=== PATIENT | male | born 1995 | race Caucasian/White ===

== ENCOUNTER 2019-04-18 00:19 | Observation (INO) ==
[2019-04-18] MEDS ORDERED: IBUPROFEN 600 MG TABLET PO ONE (01:01)
[2019-04-18] MEDS: NORMAL SALINE 1,000 ML IV SCH ×3 (01:09→09:00)
[2019-04-18 01:17] LABS: Hematocrit 47.1 % (42.0-52.0); Hemoglobin 15.8 gm/dL (13.5-18.0); Mean Cell Volume 89.4 fl (78-100); Mean Corpuscular Hgb Conc 33.5 g/dl (32-36); Mean Platelet Volume 12.1 fl (8-11.3); Neutrophil # 11.2 K/mm3 (1.3-6.0); Neutrophil % 77.2 % (42-75.0); Red Blood Count 5.27 M/mm3 (4.7-6.0); Red Cell Distribution Width 12.8 % (11.5-14.0); White Blood Count 14.5 K/mm3 (4.0-10.5)
[2019-04-18 01:18] LABS: Platelet Count 272 K/mm3 (150-450)
--- NOTE | 2019-04-18 01:26 | ERNOTE ---
Date of Service: 04/18/19 Time Seen by Provider: 04/18/19 00:30 Stated Complaint: COUGHING Presenting Symptoms:: cough, fever Source: patient Exam Limitations: no limitations Immunizations: IMMUNIZATION HX Immunizations Up to Date Yes History of Influenza Vaccine No Allergies/Adverse Reactions: Allergies No Known Drug Allergies Allergy (Verified 04/18/19 00:25) Home Medications: HOME MEDICATIONS NK 05/05/18 [Last Taken Unknown] - History of Present Ilness Narrative: 23-year-old male presents with cough for body aches and fever. Patient reports symptoms have been going on for the past 2 days. He is concerned regarding possible pneumonia. He previously had pneumonia last year and had similar symptoms. He has a past medical history of muscular dystrophy and severe scoliosis with pectus excavatum. Date (Duration): 04/18/19 Timing: constant Severity: moderate Modifying Factors - Improves: Reports: rest Modifying Factors - Worsens: Reports: activity Associated Symptoms: Reports: cough, shortness of breath Review of Systems - Review of Systems Constitutional: Present: See HPI, chills, fatigue, malaise EYE: Present: no symptoms reported ENT: Present: nose congestion Respiratory: Present: cough Cardiology: Present: no symptoms reported Gastrointestinal/Abdominal: Present: no symptoms reported Genitourinary: Present: no symptoms reported Skin: Present: no symptoms reported All Other Systems: All systems neg except as marked Medical History (Last Reviewed 04/18/19 @ 01:20 by Trevor Brown MD) ADHD Onset Date: Unknown Closed nondisplaced fracture of medial condyle of left femur Onset Date: 09/02/17 w/ intracondylar extension Muscular dystrophy Onset Date: Unknown Scoliosis Onset Date: Unknown Undescended testes Onset Date: Unknown Surgical History: Surgical History (Last Reviewed 04/18/19 @ 06:39 by Trevor Brown MD) History of testicular surgery Onset Date: Unknown Family History: Family History (Last Reviewed 04/18/19 @ 01:20 by Trevor Brown MD) Mother Alive and well Father Alive and well Sister Muscular dystrophy x1 Brother Muscular dystrophy x1 Social History: (Last Reviewed 04/18/19 @ 01:20 by Trevor Brown MD) Social History: Marital status: Single household members: family current occupational status: unemployed current occupation: disability Highest education level completed: 11th grade Service: No Tobacco: Smoking Status: Never smoker Alcohol: alcohol intake: never Substance Use: substance use type: does not use Dietary Habits: caffeine: Yes Type: carbonated beverages Physical Exam - Physical Exam General Appearance: Present: cachetic Head Exam: Present: normal inspection Eye Exam: Normal inspection: bilateral Ears, Nose, Throat: Present: nasal congestion Neck: Present: nontender Respiratory: Present: no respiratory distress, rhonchi - Left lower lobe Cardiovascular/Chest: Present: no murmur, tachycardia, other - pectus excavatum Gastrointestinal/Abdominal: Present: normal bowel sounds Back Exam: Present: other - Severe scoliosis Neurological Exam: Present: alert, oriented Skin Exam: Present: normal color Progress - Results and Orders Patient's Lab Results:: I have reviewed the patient's lab results. - Vital Signs Patient's Vital Signs:: I have reviewed the patient's vital signs. Vital Signs: Vital Signs 04/18/19 00:22 04/18/19 01:10 Temperature 38.9 C H Pulse Rate 137 H 111 H Respiratory Rate 20 14 Blood Pressure 132/86 121/86 O2 Sat by Pulse Oximetry 98 99 - Progress/Reassessment Chief Complaint: Cough Progress:: Unchanged - Transfer of Care Expected Disposition: Admit Plan - Plan Plan: 22-year-old male with a past medical history of muscular dystrophy, scoliosis, and moderate to severe pectus excavatum presents with cough and shortness of breath is slowly been increasing over the past 2 days. He appears Kach x-ray was tachycardic, and was febrile. He was noted to have rhonchi left lower lobe and imaging suggestive of early left lower lobe pneumonia. He was given ceftriaxone and azithromycin as well as IV fluids and Tylenol. He was placed on observation floor for further care. Departure Clinical Impression: Pneumonia Qualifiers: Pneumonia type: due to unspecified organism Laterality: left Lung location: lower lobe of lung Qualified Code(s): J18.9 - Pneumonia, unspecified organism - Departure Disposition: Still a patient Condition: Fair
[2019-04-18 01:31] LABS: Albumin * 3.5 gm/dl (3.4-5.0); Anion Gap 12.5 mmol/L (6.8-13.8); BUN/Creatinine Ratio 13.5 (9.0-21.6); Bilirubin, Total 0.8 mg/dL (0.0-1.1); Ca. Corrected For Albumin 8.3 mg/dL (8.4-10.2); Calcium * 8.2 mg/dL (7.9-10.9); Carbon Dioxide 27.6 mmol/L (24-32.6); Potassium 3.1 mmol/L (3.4-4.6); Total Protein 7.1 gm/dL (6.2-8.2)
[2019-04-18] MEDS ORDERED: cefTRIAXone SODIUM 1,000 MG/100 ML BAG IV ONE ×2 (01:52→01:55)
[2019-04-18] MEDS ORDERED: AZITHROMYCIN 250 MG TABLET PO ONE ×2 (01:53→01:55)
[2019-04-18] MEDS ORDERED: NORMAL SALINE 1,000 ML IV ONE (03:15)
--- NOTE | 2019-04-18 08:23 | HP ---
Chief Complaint - Chief Complaint Date of Service: 04/18/19 Time of Service: 08:25 Chief Complaint: chest tightness History of Present Illness: Patient with a PMHx of muscular dystrophy presented to the ED for 3 days of chest tightness, cough, and fever to 101.1. He was hospitalized at [facility] last year for pneumonia. He has significant pectus excavatum. This morning, he feels the same as yesterday. Denies SOB or other complaints. Medical History (Last Updated 04/18/19 @ 03:29 by Yvette Fernández RN) Fracture tibia/fibula on left four years ago ADHD Onset Date: Unknown Closed nondisplaced fracture of medial condyle of left femur Onset Date: 09/02/17 w/ intracondylar extension Muscular dystrophy Onset Date: Unknown Scoliosis Onset Date: Unknown Undescended testes Onset Date: Unknown Surgical History: Surgical History (Last Reviewed 04/18/19 @ 06:39 by Trevor Brown MD) History of testicular surgery Onset Date: Unknown Family History: Family History (Last Reviewed 04/18/19 @ 03:29 by Yvette Fernández RN) Mother Alive and well Father Alive and well Sister Muscular dystrophy x1 Brother Muscular dystrophy x1 Social History: (Last Reviewed 04/18/19 @ 03:29 by Yvette Fernández RN) Social History: Marital status: Single household members: family current occupational status: unemployed current occupation: disability Highest education level completed: 11th grade Service: No Tobacco: Smoking Status: Never smoker Alcohol: alcohol intake: never Substance Use: substance use type: does not use Dietary Habits: caffeine: Yes Type: carbonated beverages Review Of Systems (GEN) - Review of Systems Generalized/Overall Review: Present: Fever Respiratory: Present: Cough. Absent: Shortness of Breath, Wheezing Cardiac: Present: Chest Pain. Absent: Edema Abdominal: Absent: Nausea Genitourinary: Present: No Symptoms Reported Musculoskeletal: Present: No Symptoms Reported Neurological: Present: No Symptoms Reported Immunizations: IMMUNIZATION HX Immunizations Up to Date Yes History of Influenza Vaccine No Allergies/Adverse Reactions: Allergies Allergy/AdvReac Type Severity Reaction Status Date / Time No Known Drug Allergies Allergy Verified 04/18/19 00:25 Home Medications: HOME MEDICATIONS NK 05/05/18 [Last Taken Unknown] Exam - Exam Vital Signs: Vital Signs - Last Taken Temp 36.4 C 04/18/19 06:46 Pulse 77 04/18/19 06:46 Resp 20 04/18/19 06:46 BP 107/83 04/18/19 06:46 Pulse Ox 99 04/18/19 06:46 Constitutional: Present: Alert - thin, Cooperative Respiratory: Present: lungs clear, normal breath sounds, no respiratory distress, other - significant pectus excavatum Cardiovascular/Chest: Present: regular rate, rhythm Abdomen: Present: soft, nontender Appearance: Present: appropriate appearance Eye contact: Present: cooperative Diagnostic Studies: Abnormal Lab Results 04/18/19 04/18/19 Range/Units 01:11 01:11 WBC 14.5 H (4.0-10.5) K/mm3 MPV 12.1 H (8-11.3) fl Immature Gran # (Auto) 0.06 H (0.000-0.0310) K/mm3 Neutrophils % 77.2 H (42-75.0) % Lymphocytes % 12.7 L (20-51) % Monocytes % 9.3 H (0.0-9) % Neutrophils # 11.2 H (1.3-6.0) K/mm3 Monocytes # 1.4 H (0.0-1.0) k/mm3 Potassium 3.1 L (3.4-4.6) mmol/L Est GFR (Non-Af Amer) 213 H (60-130) mL/min Random Glucose 124 H (70-110) mg/dL Calcium Adj for Albumin 8.3 L (8.4-10.2) mg/dL Laboratory Results WBC 14.5 K/mm3 (4.0-10.5) H 04/18/19 01:11 RBC 5.27 M/mm3 (4.7-6.0) 04/18/19 01:11 Hgb 15.8 gm/dL (13.5-18.0) 04/18/19 01:11 Hct 47.1 % (42.0-52.0) 04/18/19 01:11 MCV 89.4 fl (78-100) 04/18/19 01:11 MCH 30.0 pg (27-31) 04/18/19 01:11 MCHC 33.5 g/dl (32-36) 04/18/19 01:11 RDW 12.8 % (11.5-14.0) 04/18/19 01:11 Plt Count 272 K/mm3 (150-450) 04/18/19 01:11 MPV 12.1 fl (8-11.3) H 04/18/19 01:11 Immature Gran % (Auto) 0.40 % (0.001-0.429) 04/18/19 01:11 Immature Gran # (Auto) 0.06 K/mm3 (0.000-0.0310) H 04/18/19 01:11 Neutrophils % 77.2 % (42-75.0) H 04/18/19 01:11 Lymphocytes % 12.7 % (20-51) L 04/18/19 01:11 Monocytes % 9.3 % (0.0-9) H 04/18/19 01:11 Eosinophils % 0.1 % (0.0-3.0) 04/18/19 01:11 Basophils % 0.3 % (0.0-1.0) 04/18/19 01:11 Nucleated RBC % 0.0 k/mm3 (0-1) 04/18/19 01:11 Neutrophils # 11.2 K/mm3 (1.3-6.0) H 04/18/19 01:11 Lymphocytes # 1.85 k/mm3 (1.5-3.5) 04/18/19 01:11 Monocytes # 1.4 k/mm3 (0.0-1.0) H 04/18/19 01:11 Eosinophils # 0.0 k/mm3 (0.0-0.7) 04/18/19 01:11 Absolute Basophils 0.0 k/mm3 (0.0-0.1) 04/18/19 01:11 Sodium 134 mmol/L (132-142) 04/18/19 01:11 Plasma Sodium 134 mmol/L (130-142) 04/18/19 01:11 Potassium 3.1 mmol/L (3.4-4.6) L 04/18/19 01:11 Chloride 97 mmol/L (97-106) 04/18/19 01:11 Carbon Dioxide 27.6 mmol/L (24-32.6) 04/18/19 01:11 Anion Gap 12.5 mmol/L (6.8-13.8) 04/18/19 01:11 BUN 7 mg/dL (6-23) 04/18/19 01:11 Creatinine 0.52 mg/dL (0.4-1.4) 04/18/19 01:11 Est GFR (Non-Af Amer) 213 mL/min (60-130) H 04/18/19 01:11 BUN/Creatinine Ratio 13.5 (9.0-21.6) 04/18/19 01:11 Random Glucose 124 mg/dL (70-110) H 04/18/19 01:11 Lactic Acid, Venous 1.6 mmol/L (0.4-2.0) 04/18/19 01:11 Calcium 8.2 mg/dL (7.9-10.9) 04/18/19 01:11 Calcium Adj for Albumin 8.3 mg/dL (8.4-10.2) L 04/18/19 01:11 Total Bilirubin 0.8 mg/dL (0.0-1.1) 04/18/19 01:11 AST 21 U/L (0-48) 04/18/19 01:11 ALT 21 U/L (19-67) 04/18/19 01:11 Alkaline Phosphatase 54 U/L (50-170) 04/18/19 01:11 Total Protein 7.1 gm/dL (6.2-8.2) 04/18/19 01:11 Albumin 3.5 gm/dl (3.4-5.0) 04/18/19 01:11 Influenza Type A Ag Negative (NEGATIVE) 04/18/19 00:51 Influenza Type B Ag Negative (NEGATIVE) 04/18/19 00:51 Group A Strep Rapid Negative (NEGATIVE) 04/18/19 00:51 Assessment/Plan - Assessment/Plan (1) Pneumonia Assessment: Due to his muscular dystrophy, he was admitted for observation. With his fever, cough, and chest tightness, he is being treated for community acquired pneumonia. Possible infiltrate seen on CXR. Negative influenza and strep. WBC slightly elevated at 14.5. Has not required oxygen. He is not yet improving, and continued to have fevers overnight. He was given rocephin and azithromycin in the ED. Will continue azithromycin and tylenol for fever. Anticipate DC in 24-48 hours. Problem: Acute Qualifiers: Pneumonia type: due to unspecified organism Laterality: left Lung location: lower lobe of lung Qualified Code(s): J18.9 - Pneumonia, unspecified organism (2) Muscular dystrophy Problem: Chronic
[2019-04-18] MEDS: AZITHROMYCIN 250 MG TABLET PO SCH (09:45)
[2019-04-18] MEDS: ACETAMINOPHEN 325 MG TABLET PO PRN (18:54)
[2019-04-19] MEDS: ACETAMINOPHEN 325 MG TABLET PO PRN (02:53)
[2019-04-19] MEDS ORDERED: CEFDINIR 300 MG CAPSULE PO SCH (09:00)
[2019-04-19] MEDS: AZITHROMYCIN 250 MG TABLET PO SCH (09:27)
--- NOTE | 2019-04-19 13:00 | DS ---
(1) Pneumonia Problem: Acute Qualifiers: Pneumonia type: due to unspecified organism Laterality: left Lung location: lower lobe of lung Qualified Code(s): J18.9 - Pneumonia, unspecified organism (2) Muscular dystrophy Problem: Chronic Date of Discharge:: 04/19/19 Hospital Course: Patient with a PMHx of muscular dystrophy presented to the ED for 3 days of chest tightness, cough, and fever to 101.1. He was hospitalized at [facility] last year for pneumonia. He has significant pectus excavatum. Due to his physical frailty, he was admitted for observation. He was started on azithromycin, and given a dose of rocephin in the ED. Azithromycin was continued, and cefdinir was added when he had a fever overnight 04/18. On the day of DC, he felt comfortable going home. His physician is in [place]. Will schedule a follow up with me in one week, so he doesn't have to drive that far. Procedures Performed: none Results and Findings: Pending Mircobiology Results 04/18/19 03:00 Blood Blood Culture - Preliminary NO GROWTH 24 HOURS 04/18/19 01:11 Blood Blood Culture - Preliminary NO GROWTH 24 HOURS Lab Pending Results 04/18/19 00:51: Influenza Type A Ag Negative, Influenza Type B Ag Negative 04/18/19 00:51: Group A Strep Rapid Negative 04/18/19 01:11: WBC 14.5 H, RBC 5.27, Hgb 15.8, Hct 47.1, MCV 89.4, MCH 30.0, MCHC 33.5, RDW 12.8, Plt Count 272, MPV 12.1 H, Immature Gran % (Auto) 0.40, Immature Gran # (Auto) 0.06 H, Neutrophils % 77.2 H, Lymphocytes % 12.7 L, Monocytes % 9.3 H, Eosinophils % 0.1, Basophils % 0.3, Nucleated RBC % 0.0, Neutrophils # 11.2 H, Lymphocytes # 1.85, Monocytes # 1.4 H, Eosinophils # 0.0, Absolute Basophils 0.0 04/18/19 01:11: Sodium 134, Plasma Sodium 134, Potassium 3.1 L, Chloride 97, Carbon Dioxide 27.6, Anion Gap 12.5, BUN 7, Creatinine 0.52, Est GFR (Non-Af Amer) 213 H, BUN/Creatinine Ratio 13.5, Random Glucose 124 H, Calcium 8.2, Calcium Adj for Albumin 8.3 L, Total Bilirubin 0.8, AST 21, ALT 21, Alkaline Phosphatase 54, Total Protein 7.1, Albumin 3.5 04/18/19 01:11: Lactic Acid, Venous 1.6 Discharge Location: Home Disposition: Home self-care Condition: Fair Discharge Activity: Activity as tolerated Discharge Diet: Resume usual diet Referrals: Carmen Alaniz DO [Staff Physician] - One Week Prescriptions (Any new or edited meds): Cefdinir [Omnicef] 300 mg PO BID #11 cap Transmission Status: Pending to [place], [place] Azithromycin [Zithromax] 250 mg PO DAILY #2 tab Transmission Status: Pending to [place], [place] Complete Home Medications List: Complete Home Medication List: Azithromycin [Zithromax] 250 mg PO DAILY #2 tab 04/19/19 Cefdinir [Omnicef] 300 mg PO BID #11 cap 04/19/19
[2019-04-19 13:31] VITALS: BP 121/72
== END 2019-04-19 13:45 | disposition home or self-care (01) ==
LOC: MS 00:19 → ER 00:19 → MS 03:10
PROVIDERS: ADMIT Family Medicine; ATTEND Family Medicine
CPT/HCPCS: 36415; 71020; 71046; 80053; 83605; 85025; 87040; 87081; 87400; 87430; 87449; 93005; 96365; 99285; G0378